=== PATIENT | male | born 2000 | race Caucasian/White ===

== ENCOUNTER 2023-08-09 13:56 | Emergency (ER) | payer MEDICAID ==
[~2023-08-09] VITALS: Ht 185.4 cm; Wt 72.7 kg
[2023-08-09 15:27] VITALS: BP 130/80; PULSE 87; RESP 16; TEMP 98; O2SAT 98
[2023-08-09 15:40] LABS: ALBUMIN 3.8 G/DL (3.4-5.0); ANION GAP 10 (8-16); BLOOD UREA NITROGEN 9 MG/DL (7-18); CALCIUM 9.4 MG/DL (8.5-10.1); CHLORIDE 101 MMOL/L (99-107); CREATININE 0.82 MG/DL (0.60-1.10); GLUCOSE 126 MG/DL (70-104); POTASSIUM 3.8 MMOL/L (3.5-5.1); SODIUM 139 MMOL/L (135-145); eCRCL 144 ML/MIN; eGFR > 90 ML/MIN
[2023-08-09 15:42] LABS: BASOPHILS % (AUTO) 0.6 % (0-1); EOSINOPHILS % (AUTO) 0.3 % (0-6); HEMATOCRIT 41.9 % (42.0-52.0); HEMOGLOBIN 14.2 g/dl (14.0-17.9); LYMPHOCYTES # (AUTO) 1.1 X10'3 (1.1-4.8); LYMPHOCYTES % (AUTO) 32.1 % (21-51); MEAN CORPUSCULAR HEMOGLOBIN 30.5 PG (27.0-31.0); MEAN CORPUSCULAR VOLUME 89.7 FL (78-98); MEAN PLATELET VOLUME 7.1 FL (7.4-10.4); MONOCYTES # (AUTO) 0.2 X10'3 (0-0.9); MONOCYTES % (AUTO) 7.2 % (2-12); NEUTROPHILS # (AUTO) 2.1 X10'3 (1.8-7.7); NEUTROPHILS % (AUTO) 59.8 % (42-75); PLATELET COUNT 328 X10'3 (140-440); RED BLOOD COUNT 4.66 X10'6 (4.70-6.10); RED CELL DISTRIBUTION WIDTH 12.7 % (11.5-14.5); WHITE BLOOD COUNT 3.5 X10'3 (4.5-11.0)
[2023-08-09] MEDS ORDERED: METH-798 PO (18:19)
[2023-08-09] MEDS ORDERED: PER5325T PO (18:19)
[2023-08-09] MEDS ORDERED: CEPH-585 PO (18:19)
[2023-08-09] MEDS: CefTRIAXone 1000mg IM Kit (w/lidocaine diluent) IM ONE (18:29)
== END 2023-08-09 19:11 | disposition home or self-care (01) ==
LOC: ER 13:57
DX: S91.104A Unspecified open wound of right lesser toe(s) without damage to nail, initial encounter (principal); V49.88XA Car occupant (driver) (passenger) injured in other specified transport accidents, initial encounter; Y93.89 Activity, other specified; Y92.89 Other specified places as the place of occurrence of the external cause; Y99.8 Other external cause status
CPT/HCPCS: 36415; 71045; 73630; 80048; 83605; 84145; 85025; 87040; 96372; 99284; A6223; J0696; A6258